=== PATIENT | male | born 2000 | race Two or more races ===

== ENCOUNTER 2022-03-07 00:48 | Emergency (ER) | payer OTHER, MEDICAID ==
[~2022-03-07] VITALS: Ht 177.8 cm; Wt 76.5 kg
[2022-03-07 00:51] VITALS: BP 125/81
== END 2022-03-07 02:00 | disposition left against medical advice (07) ==
LOC: ER 01:12
DX: Z53.21 Procedure and treatment not carried out due to patient leaving prior to being seen by health care provider (principal); J45.909 Unspecified asthma, uncomplicated; Z98.890 Other specified postprocedural states